=== PATIENT | male | born 1945 | race Caucasian/White ===

== ENCOUNTER 2016-03-06 20:37 | Inpatient (IN) | payer OTHER ==
[2016-03-06] VITALS (8 sets, daily range): BP systolic 77–146; BP diastolic 33–95
[~2016-03-06] VITALS: Ht 170.2 cm; Wt 88.9 kg
--- NOTE | ~2016-03-06 | EKG ---
[facility] [place] [address] ELECTROCARDIOGRAM REPORT Name: BRAULIO VALLADARES Room #: 242-P [facility] IN M.R.#: [id number] Admission: 03/06/16 Attend Phys: Richard Bruce MD, [facility] Discharge: 03/07/16 Date of : 41 Report #: [id number] THIS REPORT FOR: //name// [facility] ED Test Date: 2016-03-06 Test Time: 20:42:54 Pat Name: SONU VALLADARES Department: Room: 242 Gender: M Radio Journalist: SWAPNIL : 1945 Requested By: Ricardo Woodward Order Number: [id number] MD: Vicente Flores Measurements Intervals [place] Rate: 40 P: 0 NH: 308 QRS: -1 QRSD: 103 T: 74 QT: 486 QTc: 397 Interpretive Statements Junctional bradycardia Nonspecific T abnormalities Baseline wander in lead(s) V6 No previous ECG available for comparison Electronically Signed On 03-08-2016 8:40:59 HOUSEKEE[employer]IST[employer] by Vicente Flores [email or web address] <ELECTRONICALLY SIGNED> By: Vicente Flores MD, [facility] 03/08/16 0840 41 41 Vicente Flores MD, FAC /EPI
--- NOTE | ~2016-03-06 | H ---
[facility] [place] [address] HISTORY AND PHYSICAL Name: BRAULIO VALLADARES Room #: 242-P [facility] IN M.R.#: [id number] Admission: 03/06/16 Attend Phys: Richard Bruce MD, [facility] Discharge: 03/07/16 Date of : 41 Report #: [id number] THIS REPORT FOR: //name// CC: Zeb Alvarado [facility] Frank Velazquez MD [facility] Mauricio Crowley MD DATE OF SERVICE: 03/07/2016 CHIEF COMPLAINT: Unresponsiveness with bradycardia. HISTORY OF PRESENT ILLNESS: The patient is a 70-year-old white male well known to me, lives at home with his family, has had several strokes over the last several years, has type 2 diabetes and chronic renal insufficiency. He had been hypersomnolent and was sleeping in his easy chair at home, but when family members went to help him up out of his chair, he was unresponsive. They notified EMS. They found him in first-degree AV block, bradycardia and started transcutaneous pacing. He responded to that variably. He did not regain consciousness. He was found to be in overt acute renal failure in the Emergency Department with a BUN of 74 and a creatinine of 5.8, potassium was markedly elevated at 7.2. He is admitted to the ICU and pressure support was required with dopamine. Consults were placed to Dr. Velazquez from Cardiology and renal medicine. PAST MEDICAL HISTORY: Stroke, type 2 diabetes, hypertension, debility, gait disturbance, hyperlipidemia, hypothyroidism. MEDICATIONS: Vitamin D3, 400 international units p.o. daily, Protonix 40 mg p.o. daily, gabapentin 300 mg t.i.d., Toprol-XL 25 mg 1 p.o. daily, vitamin B12, 500 mcg p.o. daily, Synthroid 0.1 mg 1 p.o. daily, Zetia 10 mg 1 p.o. daily, clonidine 0.1 mg 1 p.o. b.i.d., sertraline 50 mg 1 p.o. daily, NovoLog 100 units subq q.i.d. with sliding scale, Enablex 7.5 mg p.o. daily, Lantus subq at bedtime, amlodipine 10 mg p.o. daily, losartan 50 mg 1 p.o. daily, pravastatin 40 mg 1 p.o. daily, Brilinta 60 mg p.o. daily, aspirin 81 mg p.o. daily, melatonin 3 mg 1 p.o. at bedtime, docusate sodium 100 mg p.o. at bedtime, MiraLax 17 grams p.o. daily, p.r.n. constipation. ALLERGIES: PENICILLIN. FAMILY HISTORY: Noncontributory. SOCIAL HISTORY: Retired, lives at home with family. Nonsmoker, nondrinker. REVIEW OF SYSTEMS: Not able to be obtained from the unconscious patient. [address] [address] HISTORY AND PHYSICAL Name: BRAULIO VALLADARES Room #: 242-P [facility] IN M.R.#: [id number] Admission: 03/06/16 Attend Phys: Richard Bruce MD, [facility] Discharge: 03/07/16 Date of : 41 Report #: [id number] OBJECTIVE: VITAL SIGNS: Temperature . Pulse ox 100% on 4 liters nasal cannula, respiratory rate 10, pulse was 40, blood pressure 77/30. GENERAL: He is nonresponsive. He weighs 188 pounds or 85.28 kg. HEENT: Grossly normal. CARDIOVASCULAR: S1, S2. Bradycardic in the 30s. CHEST: Clear, but with diminished bases. ABDOMEN: Soft, nontender. NEUROLOGIC: He is comatose. IMAGING: EKG shows bradycardia with increased NV interval and another EKG shows a junctional bradycardia, both with rates in the 30s. LABORATORY EVALUATION: CBC: White count 6.4, hemoglobin 9.5, hematocrit 28.6, platelets 272,000. Serum chemistry: Sodium 141, potassium 7.2, chloride 113, CO2 of 15, anion gap 13, BUN 74, creatinine 5.8, estimated glomerular filtration rate is 10. Glucose 138, calcium is 8.1, magnesium 2.2, total bilirubin 0.1, AST 25, ALT 35, alkaline phosphatase 66. Ammonia 25, creatinine kinase 227. CK-MB 8.2. Troponin less than 0.04. BNP 3986, total protein 5.3. Albumin 2.4. Protime is 11.4, INR 1.1, APTT 27.3. Urinalysis from a clean catch urine showed a yellow, slightly cloudy urine, pH 6.0. Specific gravity 1.025, 3+ urinary protein, negative ketones, trace blood, negative nitrite, negative bilirubin. Urobilinogen 0.2, negative leukocyte esterase. Under the microscope, no red cells or white cells were seen. Trace glucose noted and moderate amorphous urate crystals were seen. Chest x-ray done from the emergency department showed no acute cardiopulmonary abnormality. ASSESSMENT: Hypotension, bradycardia, acute renal failure, coma, hyperkalemia, anemia, history of stroke, type 2 diabetes. PLAN: Admitted to the hospital. Initially Cardiology and Nephrology consults were requested. The patient's family is now opting to proceed with comfort care measures. <ELECTRONICALLY SIGNED> By: Richard Bruce MD, IVY, FACEShobha 03/16/16 1513 [id number] Richard Bruce MD, IVY, FACEP /nt
--- NOTE | ~2016-03-06 | DEA ---
[facility] [place] [address] SUMMARY Name: BRAULIO VALLADARES Room #: 242-P [facility] IN M.R.#: [id number] Admission: 03/06/16 Attend Phys: Richard Bruce MD, [facility] Discharge: 03/07/16 Date of : 41 Report #: [id number] THIS REPORT FOR: //name// CC: Zeb Alvarado [facility] DATE OF : 03/07/2016. SIGNIFICANT FINDINGS AND TREATMENT RENDERED: This is a 70-year-old white male who lives at home with his family, has complex medical problems and has had several strokes over the last several years. He has type 2 diabetes and chronic renal insufficiency. He had been hypersomnolent, was sleeping in his easy-chair at home. When a family member went to help him out of his chair, he was unresponsive. Ambulance was summoned. He was found to be in first AV block and bradycardic. He was started on transcutaneous pacing and responded to that variably. He did not regain consciousness. He was found to be in overt renal failure in the emergency department with BUN of 74 and creatinine of 5.8, potassium markedly elevated at 7.2. He was admitted to the intensive care unit, and pressure support was required with dopamine. Consults were placed to Dr. Velazquez and renal medicine. Family opted, however, to pursue comfort care measures only. He was made DNR and went to comfort care. Dopamine was discontinued and morphine drip was instituted. He shortly thereafter. PRINCIPAL DIAGNOSES: Cardiogenic shock. Others, bradycardia, first degree atrioventricular block, type 2 diabetes, chronic renal failure, cerebrovascular disease, and old strokes. CONSULTATIONS: As above, but none were carried out, due to decisions of the family. Appropriate arrangements were made for disposition of the remains and condolences to the family. <ELECTRONICALLY SIGNED> By: Richard Bruce MD, IVY, KARISHMA 03/30/16 1817 [id number] Richard Bruce MD, IVY, FACEShobha /nt
[~2016-03-06 20:37] MED LIST: AMARYL4 MG PO; AMLODIPINE BESY10 MG PO; ASPIR 8181 MG PO; ATIVAN0.5 MG PO; BASE, PCCA RAPID1 GM PO; BISACODYL SUPP10 MG RECTAL; BRILINTA60 MG PO; BRILINTA90 MG PO; CEFTIN500 MG PO; CIPRO500 MG PO; CITRATE OF MAG296 ML PO; CLONIDINE0.1 PO; COLACE100 MG PO; COZAAR 50 MG TA50 M2 PO; DEPO-TESTO100 MG/1 M IM; DEX4 GLUCOSE1 EACH PO; DEX4 GLUCOSE4 GM PO; DIABETA 5MG TABL5 MG PO; DOXYCYCLINE 10100 MG PO; ENABLEX 7.5 MG7.5 M1 PO; FENOFIBRATE160 MG PO; FISH OIL 1,0001 EAC5 PO; FISH OIL 1,001000 M2 PO; FLAGYL500 MG PO; GENTEAL TEARS 015 ML OP; GLIMEPIRIDE4 MG PO; GLUCOPHAGE1000 MG PO; HYDROCHLOROTHIA25 M1 PO; IMDUR 30 MG TAB30 M1 PO; LANTUS SUBQ; LEVEMIR SUBQ; LEVOTHYROXINE 0.1 MG PO; LISINOPRIL20 MG PO; LOPRESSOR25 PO; MAG-AL PLUS SUS30 ML PO; MILK OF MA2400 MG/10 PO; MIRALAX17 GM PO; NEURONTIN 300300 M1 PO; NORVASC10 MG PO; NORVASC5 MG PO; NOVOLOG100 UNIT/1 SUBQ; ONDANSETRON HCL4 M2 PO; PEG3350510 GM PO; PLAVIX 75 MG TA75 M1 PO; PROTONIX40 M1 PO; SENNA8.6 MG PO; SERTRALINE HCL50 MG PO; SYNTHROID100 MCG PO; TEARS NATURALE1 EACH OPHTHALMIC; TYLENOL325 MG PO; VASCEPA1 GM PO; VITAMIN B-12500 MCG PO; VITAMIN D1000 UNI1 PO; VITAMIN D310000 UNIT PO; ZETIA10 MG PO; ZOLOFT50 MG PO
[2016-03-06] MEDS ORDERED: NEURONTIN 300300 M1 PO (21:05)
[2016-03-06] MEDS ORDERED: VITAMIN D3400 UNIT PO (21:05)
[2016-03-06] MEDS ORDERED: PROTONIX40 M1 PO (21:05)
[2016-03-06] MEDS ORDERED: VITAMIN B122500 MCG PO (21:06)
[2016-03-06] MEDS ORDERED: TOPROL XL25 MG PO (21:06)
[2016-03-06] MEDS ORDERED: CLONIDINE0.1 PO (21:07)
[2016-03-06] MEDS ORDERED: SERTRALINE HCL50 MG PO (21:07)
[2016-03-06] MEDS ORDERED: LEVOTHYROXINE 0.1 MG PO (21:07)
[2016-03-06] MEDS ORDERED: ZETIA10 MG PO (21:07)
[2016-03-06 21:08] LABS: ABSOLUTE NEUTROPHILS 4.2 thou/uL (1.4-8.2); EOSINOPHILS 4.2 % (0.0-3.0); HEMATOCRIT 28.6 % (42.0-52.0); HEMOGLOBIN 9.5 gm/dL (14.0-18.0); LYMPHOCYTES 18.8 % (24.0-44.0); MCHC 33.4 % (28.0-37.0); MCV 95.7 fL (80.0-100.0); MONOCYTES 9.3 % (1.0-8.0); PLATELET COUNT 272 thou/uL (150-400); POLYS 65.7 % (36.0-66.0); RBC 2.98 mil/uL (4.50-6.00); WBC 6.4 thou/uL (4.0-11.0)
[2016-03-06] MEDS ORDERED: NOVOLOG100 UNIT/M SUBQ (21:08)
[2016-03-06] MEDS ORDERED: LANTUS100 UNIT/M SUBQ (21:09)
[2016-03-06] MEDS ORDERED: ENABLEX 7.5 MG7.5 M1 PO (21:09)
[2016-03-06] MEDS ORDERED: PRAVACHOL40 M1 PO (21:10)
[2016-03-06] MEDS ORDERED: AMLODIPINE BESY10 MG PO (21:10)
[2016-03-06] MEDS ORDERED: COZAAR 50 MG TA50 M2 PO (21:10)
[2016-03-06] MEDS ORDERED: BRILINTA60 MG PO (21:11)
[2016-03-06] MEDS ORDERED: MELATONIN3 MG PO (21:11)
[2016-03-06] MEDS ORDERED: ASPIR 8181 MG PO (21:11)
[2016-03-06] MEDS ORDERED: COLACE100 MG PO (21:11)
[2016-03-06 21:12] LABS: ABG SAMPLE TYPE ARTERIAL; BE(vivo) -11.4 mmol/L (-2 to +3); HCO3 12.5 mmol/L (22.0-26.0); LACTATE 1.11 mmol/L (0.5-2.0); O2(CT) 13.1 mL/dL (15.0-23.0); O2Hb 95.5 % (92.0-98.0); PCO2 22.6 mmHg (35.0-45.0); PO2 84.2 mmHg (80.0-100.0); STICK SITE L.RADIAL; pH 7.359 (7.360-7.450); sO2 96.2 % (92.0-98.0); tCO2 13.1 mmol/L (24.0-30.0)
[2016-03-06] MEDS ORDERED: MIRALAX17 GM PO (21:12)
[2016-03-06 21:16] LABS: MANUAL DIFF NO
[2016-03-06 21:17] LABS: ANION GAP 13 mmol/L (7-16); BUN 74 mg/dL (7-18); CALCIUM 8.1 mg/dL (8.5-10.1); CHLORIDE 113 mmol/L (98-107); CO2 15 mmol/L (21-32); CREATININE 5.8 mg/dL (0.6-1.3); GLUCOSE 138 mg/dL (70-99); SODIUM 141 mmol/L (136-145)
[2016-03-06 21:22] LABS: POTASSIUM 7.2 mmol/L (3.5-5.1)
[2016-03-06 21:24] LABS: APTT 27.3 Seconds (24.5-32.8); INR 1.1; PROTIME 11.4 Seconds (9.3-11.4)
[2016-03-06 21:31] LABS: ALBUMIN 2.4 g/dL (3.4-5.0); ALKALINE PHOSPHATASE 66 U/L (46-116); MAGNESIUM 2.2 mg/dL (1.8-2.4); NT-PRO BRAIN NAT PEPTIDE 3986 pg/mL (<300); SGOT 25 U/L (15-37); SGPT 35 U/L (30-65); TOTAL BILIRUBIN 0.1 mg/dL (<0.1-1.0); TOTAL PROTEIN 5.3 g/dL (6.4-8.2); TROPONIN-I < 0.04 ng/mL (<0.04-0.07)
[2016-03-06 21:48] LABS: URINE BILIRUBIN NEGATIVE (Negative); URINE BLOOD TRACE (Negative); URINE COLOR YELLOW; URINE GLUCOSE-RANDOM* TRACE (Negative); URINE KETONES NEGATIVE (Negative); URINE NITRITE NEGATIVE (Negative); URINE PROTEIN (DIPSTICK) 3+ (Negative); URINE SPECIFIC GRAVITY 1.025 (1.003-1.035); URINE UROBILINOGEN 0.2 E.U./dl (0.2-1.0)
[2016-03-06 22:05] LABS: BACTERIA None Seen /HPF (None Seen); CASTS None Seen /LPF (None Seen); CRYSTALS None Seen /LPF (None Seen); SQUAMOUS None Seen /LPF (0-3); URINE RBC None Seen /HPF (0-2); URINE WBC None Seen /HPF (0-5)
[2016-03-06 22:06] LABS: AMORPHOUS URATES Moderate /LPF (None Seen)
[2016-03-06 22:27] LABS: TROPONIN-I < 0.04 ng/mL (<0.04-0.07)
[2016-03-06 22:42] LABS: ANION GAP 12 mmol/L (7-16); BUN 73 mg/dL (7-18); CALCIUM 7.6 mg/dL (8.5-10.1); CHLORIDE 114 mmol/L (98-107); CO2 15 mmol/L (21-32); CREATININE 5.6 mg/dL (0.6-1.3); GLUCOSE 124 mg/dL (70-99); SODIUM 141 mmol/L (136-145)
[2016-03-06 22:47] LABS: POTASSIUM 7.4 mmol/L (3.5-5.1)
[2016-03-06 23:16] LABS: AMP/METHAMP Negative (Negative); BARBITURATES Negative (Negative); BENZODIAZEPINES Negative (Negative); COCAINE Negative (Negative); METHADONE Negative (Negative); OPIATES Negative (Negative); PCP Negative (Negative); THC Negative (Negative)
[2016-03-07] VITALS (23 sets, daily range): BP systolic 56–101; BP diastolic 35–61
== END 2016-03-07 10:15 | DRG 308 ==
LOC: EDBD 20:37 → ER 20:37 → ICU 22:06 → EROBS 22:06 → ICU 22:35
PROVIDERS: Emergency Medicine
DX: I44.2 Atrioventricular block, complete (principal); I63.9 Cerebral infarction, unspecified; N17.9 Acute kidney failure, unspecified; R57.0 Cardiogenic shock; I12.9 Hypertensive chronic kidney disease with stage 1 through stage 4 chronic kidney disease, or unspecified chronic kidney disease; N18.9 Chronic kidney disease, unspecified; E87.5 Hyperkalemia; R00.1 Bradycardia, unspecified; E78.5 Hyperlipidemia, unspecified; E03.9 Hypothyroidism, unspecified; D64.9 Anemia, unspecified; E11.22 Type 2 diabetes mellitus with diabetic chronic kidney disease; I95.9 Hypotension, unspecified; I25.2 Old myocardial infarction; Z79.899 Other long term (current) drug therapy; Z88.0 Allergy status to penicillin; Z79.82 Long term (current) use of aspirin; Z86.73 Personal history of transient ischemic attack (TIA), and cerebral infarction without residual deficits; Z87.440 Personal history of urinary (tract) infections; Z66 Do not resuscitate; Z51.5 Encounter for palliative care
CPT/HCPCS: 10078